=== PATIENT | female | born 1960 | race Two or more races ===

== ENCOUNTER 2022-03-08 21:52 | Inpatient (IN) | payer MEDICAID ==
[~2022-03-08] VITALS: Ht 167.6 cm; Wt 99.8 kg
[2022-03-08] MEDS ORDERED: IV NORMAL SALINE 1000 ML BAG IV ONE (22:45)
[2022-03-08] MEDS ORDERED: METO25TA6 PO (22:56)
[2022-03-08] MEDS ORDERED: FURO-152 PO (22:56)
[2022-03-08] MEDS ORDERED: SPIR50TA5 PO (22:56)
[2022-03-08 23:06] LABS: HEMATOCRIT 33.4 % (31.2-41.9); MEAN CORPUSCULAR HEMOGLOBIN 34.3 uug (24.7-32.8); MEAN CORPUSCULAR VOLUME 102.2 fL (75.5-95.3)
[2022-03-08 23:15] LABS: PLATELET COUNT (AUTO) 36 K/uL (179-408)
[2022-03-08 23:29] LABS: CARBON DIOXIDE 22 mmol/L (21-32); CHLORIDE 104 mmol/L (98-107); CREATININE 1.8 mg/dL (0.6-1.3); GLUCOSE 177 mg/dL (74-106); POTASSIUM 4.6 mmol/L (3.5-5.1); UREA NITROGEN, BLOOD 28 mg/dL (7-18)
[2022-03-08 23:34] LABS: ALANINE AMINOTRANSFERASE 69 U/L (14-59); ALKALINE PHOSPHATASE 145 U/L (50-136); ASPARTATE AMINOTRANSFERASE 70 U/L (15-37); BILIRUBIN,DIRECT 2.8 mg/dL (0.0-0.2); BILIRUBIN,TOTAL 7.5 mg/dL (0.2-1.0); TOTAL PROTEIN, SERUM 6.4 g/dL (6.4-8.2)
--- NOTE | 2022-03-08 23:49 | NUR ---
assumed care of pt from triage, pt c/o generalised lethargy, fever and per family she is altered. Pt is able to answer all question appropriately but family is in a better position to recognise pt and her deviation from baseline. In triage, pt was febrile @ 102.5. pt has IV that was established in the field present. site is patent and free of redness, swelling or discomfort. pt placed on intermittent blood pressures, continuos pulse oximetry and cardiac monitoring, pt is normal sinus. pt is hypotensive, lowest seen is 83/42. pt placed in trendelenburg and started on 2L normal saline per MD order. pt denies being symptomatic and RN has not observed any S/S of hypotension, pt denies Orthostatic hypotension pt provided urine via bedpan with help of daughter at bedside, sample was collected and sent to lab. Blood collected by lab and is currently processing. pt placed in position of comfort and provided with passive cooling measures. RN began administration of IV ABX per MD order. pt and family informed of plan of care, understanding verbalised. NAD noted, RN will CTM
[2022-03-09] MEDS ORDERED: PIPERACILLIN SODIUM/TAZOBACTAM 3.375 G in IV DEXTROSE 5% 50 ML IV ONE ×2
[2022-03-09] MEDS ORDERED: VANCOMYCIN IV 1,000 MG in IV DEXTROSE 5% 250 ML IV ONE ×2
[2022-03-09 00:04] LABS: *BLOOD, URINE 3+ (NEGATIVE); *CLARITY,URINE CLOUDY (CLEAR); *COLOR,URINE YELLOW (YELLOW); *KETONES,URINE TRACE (NEGATIVE); LEUKOCYTE ESTERASE ,URINE 3+ (NEGATIVE); NITRITE, URINE NEGATIVE (NEGATIVE); PH,URINE 5.5 (5.0-8.0); UGLUCOSE NEGATIVE (NEGATIVE)
[2022-03-09] MEDS ORDERED: VANCOMYCIN IV 200 ML ONE (00:04)
[2022-03-09 00:05] LABS: *BILIRUBIN,URIN 3+ (NEGATIVE)
[2022-03-09] MEDS ORDERED: PIPERACILLIN/TAZOBACTAM/D5W 50 ML IV ONE (00:05)
[2022-03-09 00:07] LABS: BACTERIA,URINE MANY /HPF (NONE SEEN); SQUAMOUS EPITHELIAL CELL,UR FEW /HPF (NONE SEEN); WBC,URINE TNTC /HPF (0-3)
[2022-03-09] MEDS ORDERED: CHOLECALCIFEROL 1,000 UNIT TABLET ONE (00:34)
[2022-03-09] MEDS: CHOLECALCIFEROL 1,000 UNIT TABLET PO SCH ×2 (00:45→10:07)
[2022-03-09] MEDS ORDERED: IV NS 1000 ML 1,000 ML IV ONE (02:15)
[2022-03-09] MEDS ORDERED: PROCHLORPERAZINE EDISYLATE 10 MG/2 ML VIAL IV ONE (02:45)
--- NOTE | 2022-03-09 03:54 | NUR ---
Paged Epic panel. Waiting for Sarah Walton to call back.
[2022-03-09 03:56] LABS: BAND % (MANUAL) 5 % (0-10); BASOPHILS % (MANUAL) 0 % (0-2); EOSINOPHILS % (MANUAL) 0 % (0-8); LYMPHOCYTES % (MANUAL) 2 % (20-40); MONOCYTES % (MANUAL) 4 % (2-10); NEUTROPHILS % (MANUAL) 89 % (42-75)
--- NOTE | 2022-03-09 03:56 | NUR ---
lissa freire called back for admission.
[2022-03-09] MEDS ORDERED: TEMAZEPAM 15 MG CAPSULE PO PRN (04:15)
[2022-03-09] MEDS ORDERED: ONDANSETRON 4 MG/2 ML VIAL IV PRN (04:15)
[2022-03-09] MEDS ORDERED: MAGNESIUM HYDROXIDE 30 ML LIQUID UDC PO PRN (04:15)
[2022-03-09] MEDS ORDERED: IV NS 1000 ML 1,000 ML IV PRN (04:15)
[2022-03-09] MEDS ORDERED: REMEDY ESSENTIAL ZINC PASTE 113 GM TP PRN (04:15)
[2022-03-09] MEDS ORDERED: CEFTRIAXONE 1 G in IV DEXTROSE 5% 50 ML IV SCH (04:15)
--- NOTE | 2022-03-09 04:20 | NUR ---
pt stating she has to go the restroom, bedpans provided 3 times,on the fourth occasion, pt stated she would like to ambulate as she has a bowel movement in the works. pt successfully ambulated to and from the restroom with assist, after which she had a sudden episode of tremonous shaking in the upper extremities. pt sts that similar events occure at home and resolve on there own with an hour or so. pts temperture assessed and whilel pt remain febrile her temperature is lower than upon arrival. MD made aware, RN instructred to perform passive heating measures, MD made aware pt pt medicated per MD order, two ABX infused intervenously. pt tolerated well with no adverse reactions or effects following. pr assisted back to bed abnd placed back on monitoring ewquipment, rn WILL cCTM
[2022-03-09] MEDS ORDERED: PIPERACILLIN SODIUM/TAZOBACTAM 3.375 G in IV DEXTROSE 5% 50 ML IV SCH (06:00)
--- NOTE | 2022-03-09 06:00 | NUR ---
pt had zosyn 5 hours prior to scheduled am dose
[2022-03-09] MEDS: PANTOPRAZOLE SODIUM 40 MG TABLET.DR PO SCH (07:00)
--- NOTE | 2022-03-09 07:15 | NUR ---
Report taken from Ujno. Dr. Jasmine ordered 3rd liter of ns.
--- NOTE | 2022-03-09 07:40 | NUR ---
Pt assisted to bathroom. Pt has steady gait and continent in both bowel and bladder. Pt is obese and c/o back discomfort. Unable to collect urine by herself.
--- NOTE | 2022-03-09 08:33 | NUR ---
Contacted the floor and spoke to Kavya. No assigned nurse yet to take report for a Tele bed in [id number].
--- NOTE | 2022-03-09 08:35 | NUR ---
Pt hooked back to the monitor and re-assessed by Dr. Jasmine and has a go signal for patient to go to Tele floor.
--- NOTE | 2022-03-09 08:43 | NUR ---
Spoke with Kianna from Tele floor and RN will be ready to take report in 20 mins.
[2022-03-09] MEDS ORDERED: IV NORMAL SALINE 1000 ML BAG IV ONE (09:00)
--- NOTE | 2022-03-09 09:04 | NUR ---
report given to CYNTHIA Winter
[2022-03-09] MEDS ORDERED: PANTOPRAZOLE SODIUM 40 MG TABLET.DR PO ONE (09:05)
[2022-03-09] MEDS: METOPROLOL TARTRATE 25 MG TABLET PO SCH (10:00)
--- NOTE | 2022-03-09 10:00 | NUR ---
Patient in from [facility] via greg. patient position in bed with minimal assistance vitals in the low-side attending Vi Gilliam in the unit and notified. Patient AAOX4. requesting to have something to eat. IV line patent to [facility] . will continue to monitor. Addendum: 03/09/22 at 1805 by GREGORY XIAO RN [facility] nurse called and I was informed that patient had eaten breakfast before arriving to the unit.
[2022-03-09] MEDS: PIPERACILLIN SODIUM/TAZOBACTAM 3.375 G in IV DEXTROSE 5% 100 ML IV SCH ×3 (10:07→17:50)
[2022-03-09 11:13] VITALS: BP 77/42
--- NOTE | 2022-03-09 11:45 | NUR ---
Pt. on the phone with her daughter, PT. told her daughter she has been calling for the last 30 minutes. No Call registered by MT or benzene washer operator as later verified.. patient's daughter started screaming and threatening over the phone stating "I'm gonna get there and aleyda you guys my mom is dying there and no one gets to her and help her" Both pt. and daughter educated one more time on how to use call light and tv. control. Pt's daughter did not reasoned and continue with her ranting of screaming, while her mom was assisted to the bathroom by medical staff. Pt's daughter informed that her mother was stable and doing well now.
[2022-03-09 12:00] VITALS: BP 90/40
[2022-03-09] MEDS ORDERED: IV NORMAL SALINE 500 ML BAG IV ONE (12:45)
[2022-03-09 16:45] VITALS: BP 91/48
--- NOTE | 2022-03-09 18:05 | NUR ---
Left pt. in bed resting comfortably no c/of pain. On telemetry monitoring and on NSR, with SBP within desired limits, Neuro-merino AAOX4. Over all skin C.D.I.
[2022-03-09] MEDS: IV NS 1000 ML 1,000 ML IV PRN ×2 (19:19→22:26)
--- NOTE | 2022-03-09 19:30 | NUR ---
Received patient lying in bed. AAOx4. In no acute distress. Afebrile at this time. Denies any pain or SOB. NSR on tele with HR of 84/min. IV site on right wrist intact and patent. IVF infusing. Needs assessed and attended to. Safety measure initiated and call light within reached.
[2022-03-09 20:00] VITALS: BP 106/56
[2022-03-09] MEDS: ACETAMINOPHEN 325 MG TABLET PO PRN (20:42)
[2022-03-10] VITALS: BP 101/54
[2022-03-10] MEDS: PIPERACILLIN SODIUM/TAZOBACTAM 3.375 G in IV DEXTROSE 5% 100 ML IV SCH ×3 (01:26→17:19)
[2022-03-10 04:00] VITALS: BP 103/56
--- NOTE | 2022-03-10 05:20 | NUR ---
Patient slept well during the night. Remains Afebrile. In no acute distress. Denies any further pain or SOB. NSR on tele with HR of 76/min. IV site on right wrist intact and patent. IVF infusing. No adverse reaction noted from IV antibiotic. Needs attended to and met. Safety measure maintained and call light within reached.
[2022-03-10] MEDS: PANTOPRAZOLE SODIUM 40 MG TABLET.DR PO SCH (06:06)
[2022-03-10 06:43] LABS: HEMATOCRIT 29.1 % (31.2-41.9); MEAN CORPUSCULAR VOLUME 103.9 fL (75.5-95.3)
[2022-03-10 07:16] LABS: PHOSPHOROUS 2.8 mg/dL (2.5-4.9); POTASSIUM 4.7 mmol/L (3.5-5.1)
[2022-03-10 07:17] LABS: PLATELET COUNT (AUTO) 26 K/uL (179-408)
[2022-03-10 07:20] LABS: THYROID STIMULATING HORMONE 1.806 mIU/mL (0.358-3.740)
[2022-03-10 07:25] LABS: MAGNESIUM 1.1 mg/dL (1.8-2.4)
[2022-03-10 08:23] LABS: BAND % (MANUAL) 4 % (0-10); EOSINOPHILS % (MANUAL) 5 % (0-8); LYMPHOCYTES % (MANUAL) 3 % (20-40); MONOCYTES % (MANUAL) 8 % (2-10); NEUTROPHILS % (MANUAL) 80 % (42-75)
[2022-03-10] MEDS: CHOLECALCIFEROL 1,000 UNIT TABLET PO SCH (08:49)
[2022-03-10] MEDS: METOPROLOL TARTRATE 25 MG TABLET PO SCH (08:55)
[2022-03-10] MEDS: MAGNESIUM SULFATE/D5W 100 ML IV SCH ×3 (10:58→13:14)
[2022-03-10 11:21] VITALS: BP 119/53
--- NOTE | 2022-03-10 15:31 | NUR ---
Pt is a/o x 4, has been afebrile thus far with sinus rhythm on telemetry. Pt has MD reshma aware; provided comfort measures. Will continue to monitor.
[2022-03-10 16:09] VITALS: BP 97/52
[2022-03-10 18:53] LABS: BILIRUBIN,DIRECT 2.2 mg/dL (0.0-0.2); BILIRUBIN,TOTAL 4.1 mg/dL (0.2-1.0); TOTAL PROTEIN, SERUM 5.6 g/dL (6.4-8.2)
--- NOTE | 2022-03-10 19:31 | NUR ---
Received patient lying in bed. AAOx4. In no acute distress. Denies any pain or SOB at this time. On O2 at 2LPM via NC in place. NSR on tele with HR of 97/min. Safety measure initiated and call light within reached.
[2022-03-10 20:00] VITALS: BP 96/45
[2022-03-10] MEDS: ACETAMINOPHEN 325 MG TABLET PO PRN (20:07)
[2022-03-10] MEDS: IV NS 1000 ML 1,000 ML IV PRN (20:11)
--- NOTE | 2022-03-10 20:49 | NUR ---
LORY Jimenez into visit and at bedside.
[2022-03-10] MEDS ORDERED: MEROPENEM 500MG/NS 50ML PB ***ER PYXIS ONLY IV ONE ×2 (21:51→21:52)
[2022-03-10] MEDS: MEROPENEM 0.5 G in IV NORMAL SALINE 50 ML IV SCH (21:57)
[2022-03-10 22:29] LABS: *RHEUMATOID FACTOR SCREEN NEGATIVE (NEGATIVE)
[2022-03-11] VITALS: BP 119/57
[2022-03-11 04:00] VITALS: BP 134/68
[2022-03-11] MEDS: MEROPENEM 0.5 G in IV NORMAL SALINE 50 ML IV SCH (05:07)
--- NOTE | 2022-03-11 05:54 | NUR ---
Patient slept well during the night. Afebrile. No complain of pain or SOB. NSR on tele with HR of 89/min. IV site on right wrist intact and patent. IVF infusing. No adverse reaction noted from IV antibiotics. Needs attended to and met. Safety measure maintained and call light within reached.
[2022-03-11] MEDS: PANTOPRAZOLE SODIUM 40 MG TABLET.DR PO SCH (06:00)
[2022-03-11 07:32] LABS: MEAN CORPUSCULAR HEMOGLOBIN 34.7 uug (24.7-32.8)
[2022-03-11 07:50] LABS: CREATININE 1.5 mg/dL (0.6-1.3); MAGNESIUM 1.9 mg/dL (1.8-2.4); POTASSIUM 4.7 mmol/L (3.5-5.1)
[2022-03-11 07:51] LABS: PLATELET COUNT (AUTO) 32 K/uL (179-408)
[2022-03-11 08:00] VITALS: BP 132/54
[2022-03-11] MEDS: METOPROLOL TARTRATE 25 MG TABLET PO SCH (08:40)
[2022-03-11] MEDS: CHOLECALCIFEROL 1,000 UNIT TABLET PO SCH (08:40)
[2022-03-11 09:12] LABS: EOSINOPHILS % (MANUAL) 1 % (0-8); LYMPHOCYTES % (MANUAL) 3 % (20-40); MONOCYTES % (MANUAL) 11 % (2-10); NEUTROPHILS % (MANUAL) 85 % (42-75)
--- NOTE | 2022-03-11 09:48 | NUR ---
Pt is a/o x 4, ambulatory with standby assist. Pt is on room air saturating at 97%.No complaint of chest pain or SOB at this time. Comfort measures provided, call light within reach. Will continue to monitor.
[2022-03-11] MEDS ORDERED: CEFTRIAXONE 1 G in IV DEXTROSE 5% 50 ML IV SCH (11:45)
[2022-03-11 11:47] VITALS: BP 100/47
[2022-03-11] MEDS: CALCIUM CARB/VITAMIN D 500MG-200UNITS TABLET PO SCH (12:59)
[2022-03-11] MEDS: ACIDOPHILUS/BULGARICUS CHEW TAB PO SCH ×2 (13:01→21:42)
[2022-03-11] MEDS: CEFTRIAXONE 2 G in IV DEXTROSE 5% 100 ML IV SCH (13:01)
[2022-03-11] MEDS: IV NS 1000 ML 1,000 ML IV PRN (13:10)
[2022-03-11] MEDS ORDERED: MEROPENEM 0.5 G in IV NORMAL SALINE 50 ML IV SCH (14:00)
[2022-03-11] MEDS ORDERED: PHYTONADIONE 10 MG/1 ML AMPUL SQ ONE (14:30)
[2022-03-11 15:56] VITALS: BP 122/68
[2022-03-11] MEDS ORDERED: MEROPENEM 500 MG in IV NORMAL SALINE 50 ML IV SCH (18:00)
--- NOTE | 2022-03-11 20:00 | NUR ---
No IV access at this time. Pt is refusing IV insertion and states that we can try again later
[2022-03-11 20:29] VITALS: BP 107/38
[2022-03-11] MEDS: FERROUS SULFATE 325 MG TABEC PO SCH (20:47)
[2022-03-12 04:42] VITALS: BP 124/47
--- NOTE | 2022-03-12 05:30 | NUR ---
Slept throughout the night. Tolerated all mediations given. No distress noted. Able to make needs known. Safety and comfort provided. Will endorse to day shift.
[2022-03-12] MEDS: ACIDOPHILUS/BULGARICUS CHEW TAB PO SCH ×4 (06:09→23:00)
[2022-03-12] MEDS: PANTOPRAZOLE SODIUM 40 MG TABLET.DR PO SCH (06:09)
[2022-03-12 07:03] LABS: HEMATOCRIT 31.3 % (31.2-41.9); MEAN CORPUSCULAR HEMOGLOBIN 34.5 uug (24.7-32.8)
[2022-03-12 07:06] LABS: MEAN CORPUSCULAR VOLUME 102.8 fL (75.5-95.3)
[2022-03-12 07:15] LABS: PLATELET COUNT (AUTO) 32 K/uL (179-408)
[2022-03-12 07:17] LABS: NEUTROPHILS % (MANUAL) 0 % (42-75)
[2022-03-12 07:22] LABS: BILIRUBIN,DIRECT 1.7 mg/dL (0.0-0.2); BILIRUBIN,TOTAL 3.2 mg/dL (0.2-1.0); CREATININE 1.5 mg/dL (0.6-1.3); TOTAL PROTEIN, SERUM 5.7 g/dL (6.4-8.2)
[2022-03-12] MEDS: CALCIUM CARB/VITAMIN D 500MG-200UNITS TABLET PO SCH (08:14)
[2022-03-12] MEDS: METOPROLOL TARTRATE 25 MG TABLET PO SCH (08:14)
[2022-03-12] MEDS: FERROUS SULFATE 325 MG TABEC PO SCH ×2 (08:14→21:04)
[2022-03-12] MEDS: CHOLECALCIFEROL 1,000 UNIT TABLET PO SCH (08:14)
[2022-03-12 10:06] LABS: *ANTI-SCLERODERMA-70 AB <0.2 AI (0.0-0.9); *SJOGREN'S ANTI-SS-A <0.2 AI (0.0-0.9); *SJOGREN'S ANTI-SS-B <0.2 AI (0.0-0.9); *SMITH ANTIBODIES <0.2 AI (0.0-0.9); ANTI-DNA(DS) AB, QN 6 IU/mL (0-9); HEPATITIS B SURFACE AG Negative (Negative)
[2022-03-12 11:30] VITALS: BP 106/47
[2022-03-12] MEDS: CEFTRIAXONE 2 G in IV DEXTROSE 5% 100 ML IV SCH (13:22)
[2022-03-12 15:45] VITALS: BP 101/49
[2022-03-12 20:28] VITALS: BP 107/60
[2022-03-12] MEDS: IV NS 1000 ML 1,000 ML IV PRN (23:37)
[2022-03-13 04:44] VITALS: BP 113/62
[2022-03-13] MEDS: ACIDOPHILUS/BULGARICUS CHEW TAB PO SCH ×2 (06:03→13:53)
[2022-03-13] MEDS: PANTOPRAZOLE SODIUM 40 MG TABLET.DR PO SCH (06:22)
[2022-03-13 07:27] LABS: HEMATOCRIT 33.1 % (31.2-41.9); MEAN CORPUSCULAR HEMOGLOBIN 34.4 uug (24.7-32.8); MEAN CORPUSCULAR VOLUME 102.1 fL (75.5-95.3)
[2022-03-13 07:43] LABS: NEUTROPHILS % (MANUAL) 0 % (42-75); PLATELET COUNT (AUTO) 32 K/uL (179-408)
[2022-03-13 07:55] LABS: BILIRUBIN,TOTAL 3.3 mg/dL (0.2-1.0); CREATININE 1.3 mg/dL (0.6-1.3); TOTAL PROTEIN, SERUM 5.8 g/dL (6.4-8.2)
[2022-03-13] MEDS: CHOLECALCIFEROL 1,000 UNIT TABLET PO SCH (09:19)
[2022-03-13] MEDS: METOPROLOL TARTRATE 25 MG TABLET PO SCH (09:19)
[2022-03-13] MEDS: FERROUS SULFATE 325 MG TABEC PO SCH (09:19)
[2022-03-13] MEDS: CALCIUM CARB/VITAMIN D 500MG-200UNITS TABLET PO SCH (09:19)
[2022-03-13 10:14] LABS: *BILIRUBIN,URIN NEGATIVE (NEGATIVE); *BLOOD, URINE 2+ (NEGATIVE); *KETONES,URINE NEGATIVE (NEGATIVE); *UROBILINOGEN,URINE 0.2 E.U./dl (NORMAL); LEUKOCYTE ESTERASE ,URINE NEGATIVE (NEGATIVE); NITRITE, URINE NEGATIVE (NEGATIVE); UGLUCOSE NEGATIVE (NEGATIVE)
[2022-03-13 10:15] LABS: *CLARITY,URINE SLIGHTLY CLOUDY (CLEAR); *COLOR,URINE DARK YELLOW (YELLOW)
[2022-03-13 10:43] LABS: *CREATININE,URINE 115.8 mg/dL (30-125)
[2022-03-13 11:07] LABS: BACTERIA,URINE FEW /HPF (NONE SEEN); SQUAMOUS EPITHELIAL CELL,UR FEW /HPF (NONE SEEN); YEAST,URINE FEW /HPF (NONE SEEN)
[2022-03-13 11:13] VITALS: BP 115/56
[2022-03-13] MEDS ORDERED: ACID1TAB4 PO (11:19)
[2022-03-13] MEDS ORDERED: FERR325T28 PO (11:19)
[2022-03-13] MEDS ORDERED: CEFT2FRO2 IV (11:19)
[2022-03-13] MEDS ORDERED: CHOL100062 PO (11:19)
[2022-03-13] MEDS ORDERED: CALC-261 PO (11:19)
[2022-03-13] MEDS: CEFTRIAXONE 2 G in IV DEXTROSE 5% 100 ML IV SCH (13:38)
--- NOTE | 2022-03-13 15:00 | NUR ---
Home health arranged with [facility], and IV Antibiotic to be delivered in the morning, Prepared for discharge.
[2022-03-13 16:00] VITALS: BP 91/50
--- NOTE | 2022-03-13 17:10 | NUR ---
Discharged via w/c accompanied by Janneth ELIZABETH to daughter in w/c. No c/o discomfort. Anxious to see grandchildren. Left with midline intact.
== END 2022-03-13 17:15 | disposition home or self-care (01) | DRG 720 ==
LOC: ER 21:52 → TELE3 03-09 08:20 → MEDSURG3 03-11 12:14
PROVIDERS: ADMIT Nurse Practitioner Acute Care; ATTEND Nurse Practitioner Acute Care
PROC: 05H533Z Insertion of Infusion Device into Right Subclavian Vein, Percutaneous Approach (ICD-10-PCS; principal; 2022-03-12)
PROC: B546ZZA Ultrasonography of Right Subclavian Vein, Guidance (ICD-10-PCS; principal; 2022-03-12)
DX: A41.9 Sepsis, unspecified organism (principal); N17.0 Acute kidney failure with tubular necrosis; I21.A1 Myocardial infarction type 2; D61.818 Other pancytopenia; E44.0 Moderate protein-calorie malnutrition; E87.1 Hypo-osmolality and hyponatremia; E87.2 Acidosis; D68.9 Coagulation defect, unspecified; E88.09 Other disorders of plasma-protein metabolism, not elsewhere classified; N10 Acute pyelonephritis; B96.20 Unspecified Escherichia coli [E. coli] as the cause of diseases classified elsewhere; N39.0 Urinary tract infection, site not specified; D53.9 Nutritional anemia, unspecified; E66.9 Obesity, unspecified; E83.42 Hypomagnesemia; Z88.1 Allergy status to other antibiotic agents; Z68.35 Body mass index [BMI] 35.0-35.9, adult; Z71.3 Dietary counseling and surveillance; Z20.822 Contact with and (suspected) exposure to COVID-19; R74.01 Elevation of levels of liver transaminase levels; K74.60 Unspecified cirrhosis of liver; I12.9 Hypertensive chronic kidney disease with stage 1 through stage 4 chronic kidney disease, or unspecified chronic kidney disease; N18.9 Chronic kidney disease, unspecified; R16.1 Splenomegaly, not elsewhere classified
CPT/HCPCS: 36415; 51798; 70030-TC; 71045; 76700; 82533; 82746; 83550; 83605; 83735; 84100; 84300; 84443; 84484; 85025; 85610; 85730; 86038; 86430; 86706; 86803; 87040; 87077; 87086; 87340; 93005; 93307; A4663; G0378; J0696; J2185; J2543; J3370; J3430; J3475; J7040